=== PATIENT | female | born 1995 | race Caucasian/White ===

== ENCOUNTER 2017-11-03 13:32 | Emergency (ER) | payer MEDICAID ==
[~2017-11-03] VITALS: Ht 165.1 cm; Wt 88.0 kg
[~2017-11-03 13:32] MED LIST: DOXY25TA61 PO; LACT10CA PO; PYRI50TA25 PO; [UNRECOGNIZED DRUG - CODE] PO
[2017-11-03 13:34] VITALS: BP 132/82
--- NOTE | 2017-11-03 13:39 | NUR ---
PT WAS GIVEN URINE CUP...PT WAS UNABLE PROVIDE SAMPLE AT THIS TIME.
--- NOTE | 2017-11-03 15:00 | NUR ---
Patient ambulated to bed 6 with family. RN evaluating patient at bedside.
--- NOTE | 2017-11-03 15:51 | NUR ---
Dr. Hernandez evaluating patient at bedside.
--- NOTE | 2017-11-03 15:55 | NUR ---
PT C/O N/V SINCE YESTERDAY, WITH H/O HYPEREMESIS GRAVIDARIUM. PT IS 11 WEEKS AND WAS TOLD BY OBGYN IF SHE HAS N/V UNCONTROLLED TO COME TO ER. DENIES PAIN OR ABNORMAL VAG BLEEDING. PT IS AXO X4, RESTING IN BED RELAXED AND SPEAKING IN FULL SENTENCES. PLACED ON ALL MONIOTRSMD AT BEDSIDE TO PERFECTO
[2017-11-03] MEDS ORDERED: ONDANSETRON 4 MG/2 ML VIAL IVP ONE (16:10)
[2017-11-03] MEDS ORDERED: MULTIVITAMIN-12 10 ML, THIAMINE 100 MG, MAGNESIUM SULFATE 50% 2,000 MG, FOLIC ACID 5 MG... IV ONE ×5 (16:10)
[2017-11-03] MEDS ORDERED: NACL 0.9% 1,000 ML IV SCH (16:10)
[2017-11-03] MEDS ORDERED: METOCLOPRAMIDE 10 MG/2 ML INJ VIAL IVP ONE (16:10)
--- NOTE | 2017-11-03 16:37 | NUR ---
US AT BEDSIDE
[2017-11-03 17:21] LABS: BASOPHILS % (AUTO) 0.3 % (0.0-2.0); EOSINOPHILS % (AUTO) 0.4 % (0.0-4.0); HEMATOCRIT 33.6 % (36-48); HEMOGLOBIN 11.2 g/dL (12.0-16.0); LYMPHOCYTES # (AUTO) 1.7 K/uL (2.5-16.5); LYMPHOCYTES % (AUTO) 19.4 % (20.5-51.1); MEAN CORPUSCULAR HEMOGLOBIN 27 pg (27-31); MEAN CORPUSCULAR HGB CONC 33 g/dL (33-37); MEAN CORPUSCULAR VOLUME 80.7 fL (80-94); MONOCYTES # (AUTO) 0.5 K/uL (0.8-1.0); MONOCYTES % (AUTO) 5.3 % (1.7-9.3); NEUTROPHILS # (AUTO) 6.5 K/uL (1.8-7.7); NEUTROPHILS % (AUTO) 74.6 % (42.2-75.2); PLATELET COUNT (AUTO) 306 K/uL (140-450); RED BLOOD CELL COUNT(AUTO) 4.16 MIL/uL (4.20-5.40); RED CELL DISTRIBUTION WIDTH 14.5 % (11.6-13.7); WHITE BLOOD COUNT (AUTO) 8.7 K/uL (4.8-10.8)
[2017-11-03 17:32] LABS: ACETONE, SERUM NEGATIVE (NEGATIVE)
[2017-11-03 17:35] LABS: ANION GAP 12.7 (8-16); CARBON DIOXIDE 25.1 mmol/L (21-32); CHLORIDE 103 mmol/L (98-107); CREATININE 0.6 mg/dL (0.6-1.3); GFR ARICAN-AMERICAN 162 mL/min (>90); GLUCOSE 86 mg/dL (74-106); POTASSIUM 3.8 mmol/L (3.5-5.1); SODIUM SERUM 137 mmol/L (136-145); UREA NITROGEN, BLOOD 6 mg/dL (7-18)
[2017-11-03 17:41] LABS: AMYLASE 71 U/L (25-115); ASPARTATE AMINOTRANSFERASE 18 U/L (15-37); LIPASE 145 U/L (73-393); TOTAL BILIRUBIN 0.4 mg/dL (0.0-1.0)
--- NOTE | 2017-11-03 18:20 | NUR ---
Patient appears to be resting comfortably in bed. Vital Signs within normal limits. Respirations even and unlabored. PENDING US RESULTS
--- NOTE | 2017-11-03 18:33 | NUR ---
PT AMBULATES WITH STEADY GAIT TO BR FOR URINE SAMPLE
[2017-11-03 18:43] LABS: APPEARANCE,URINE SL CLOUDY (CLEAR); BILIRUBIN,URINE 2+ (NEGATIVE); BLOOD, URINE 3+ (NEGATIVE); COLOR,URINE YELLOW (YELLOW); LEUKOCYTE ESTERASE ,URINE 2+ (NEGATIVE); NITRITE, URINE NEGATIVE (NEGATIVE); UGLUCOSE NEGATIVE (NEGATIVE)
[2017-11-03 18:56] LABS: RBC,URINE 20-50 /HPF (0-5); WBC,URINE TOO MANY TO COUNT /HPF (0-5)
[2017-11-03 19:38] VITALS: BP 101/53
--- NOTE | 2017-11-03 19:38 | NUR ---
Patient discharged with v/s stable. Written and verbal after care instructions given and explained. Patient alert, oriented and verbalized understanding of instructions. Ambulatory with steady gait. All questions addressed prior to discharge. ID band removed. Patient advised to follow up with PMD. Rx of AND ZOFRAN given. Patient educated on indication of medication including possible reaction and side effects. Opportunity to ask questions provided and answered. Addendum: 11/03/17 at 1942 by GARY IV removed, catheter intact and site benign. Applied folded 4x4 gauze and tape to stop bleeding.
--- NOTE | 2017-11-10 20:54 | NUR ---
NS 1L END TIME AT 11/03/17 ([id number])
== END 2017-11-03 19:38 | disposition home or self-care (01) ==
LOC: MED 13:32
DX: O21.0 Mild hyperemesis gravidarum (principal); J45.909 Unspecified asthma, uncomplicated; Z3A.10 10 weeks gestation of pregnancy; Z79.899 Other long term (current) drug therapy
CPT/HCPCS: 36415; 76705; 76817; 80053; 81001; 82009; 82150; 83690; 84703; 85025; 86900; 86901; 87086; 96361; 96365; 96366; 96375; 99285; A9153; J2405; J2765; J3411; J3475; J3490; J7030; Q0092

== ENCOUNTER 2019-06-16 21:17 | Emergency (ER) | payer MEDICAID, OTHER ==
[~2019-06-16] VITALS: Ht 165.1 cm; Wt 81.6 kg
[2019-06-16 21:35] VITALS: BP 134/85
--- NOTE | 2019-06-16 21:38 | NUR ---
TO LOBBY A/W BED AMBULATORY
--- NOTE | 2019-06-16 22:07 | NUR ---
PT AMBULATED TO BED #2
--- NOTE | 2019-06-16 22:14 | NUR ---
24 Y/O FEMALE PRESENTS TO ED, C/O RIGHT ABDOMINAL PAIN THAT RADIATED TO LEFT FLANK. PT STATES PAIN STARTED 1 HR AGO, 8/10, NOW PAIN IS 7/10. PT STATES HAVING NAUSEA BUT NO VOMITING. PT C/O 1 EPISODE DIARRHEA. PT DENIES TAKING MEDICATIONS PRIOR COMING TO ED. PT VSS. ERMD AWARE. WILL CONTINUE TO MONITOR.
[2019-06-16] MEDS ORDERED: cefTRIAXone 1,000 MG VIAL ONE (22:24)
[2019-06-16] MEDS ORDERED: LIDOCAINE MPF 1% 5 ML ONE (22:24)
[2019-06-16] MEDS ORDERED: cefTRIAXone 1,000 MG in LIDOCAINE MPF 1% 2.1 ML IM ONE (22:25)
[2019-06-16 22:28] VITALS: BP 134/85
--- NOTE | 2019-06-16 22:28 | NUR ---
PT DISCHARGED BY DR FAJARDO. EDUCATED PT REGARDING MEDICATIONS AND D/C INSTRUCTIONS. PT VERBALIZED UNDERSTANDING OF TEACHING. TOLD PT TO FOLLOW UP WITH PCP AND WHEN TO RETURN TO ED. PT STABLE CONDITION. ALL QUESTIONS ANSWERED.
--- NOTE | 2019-06-16 22:32 | NUR ---
PT DISCHARGED BEFORE MED RE-EVALUATED. PT STATES SHE HAS HAD MEDICATION BEFORE.
== END 2019-06-16 22:28 | disposition home or self-care (01) ==
LOC: MED 21:17
DX: N39.0 Urinary tract infection, site not specified (principal); J45.909 Unspecified asthma, uncomplicated; F12.90 Cannabis use, unspecified, uncomplicated; Z79.899 Other long term (current) drug therapy
CPT/HCPCS: 81002; 96372; 99283; J0696; J2001

== ENCOUNTER 2021-10-24 07:57 | Inpatient (IN) | payer OTHER ==
[~2021-10-24] VITALS: Ht 165.1 cm; Wt 107.5 kg
[2021-10-24] MEDS: NACL 0.9% 1,000 ML IV SCH ×2 (00:15→16:08)
[2021-10-24 08:07] VITALS: BP 116/75
[2021-10-24] MEDS ORDERED: LACTATED RINGERS 1,000 ML IV ONE ×2 (08:10→13:00)
--- NOTE | 2021-10-24 08:47 | NUR ---
LAB AT BEDSIDE
[2021-10-24 09:00] LABS: BASOPHILS % (AUTO) 0.3 % (0.0-2.0); EOSINOPHILS # (AUTO) 0.1 K/uL (0-0.4); EOSINOPHILS % (AUTO) 0.6 % (0.0-4.0); HEMOGLOBIN 12.8 g/dL (12.0-16.0); LYMPHOCYTES # (AUTO) 1.2 K/uL (2.5-16.5); LYMPHOCYTES % (AUTO) 11.3 % (20.5-51.1); MEAN CORPUSCULAR HEMOGLOBIN 27 pg (27-31); MEAN CORPUSCULAR HGB CONC 34 g/dL (33-37); MONOCYTES # (AUTO) 0.5 K/uL (0.8-1.0); MONOCYTES % (AUTO) 4.5 % (1.7-9.3); NEUTROPHILS # (AUTO) 8.9 K/uL (1.8-7.7); NEUTROPHILS % (AUTO) 83.3 % (42.2-75.2); PLATELET COUNT (AUTO) 351 K/uL (140-450); RED BLOOD CELL COUNT(AUTO) 4.69 MIL/uL (4.20-5.40); RED CELL DISTRIBUTION WIDTH 14.2 % (11.6-13.7); WHITE BLOOD COUNT (AUTO) 10.7 K/uL (4.8-10.8)
[2021-10-24] MEDS ORDERED: diphenhydrAMINE 50 MG/ML VIAL IVP ONE (09:15)
[2021-10-24] MEDS ORDERED: METOCLOPRAMIDE 10 MG/2 ML INJ VIAL IVP ONE (09:15)
--- NOTE | 2021-10-24 09:18 | NUR ---
26Y FEMALE BIB SELF DUE TO CONSISTENT N/V X1 WEEK. PT ALSO HAS UTI/GALLSTONES. PT DX WITH HG BY OB. PER PATIENT SHE IS ONLY ABLE TO KEEP WATER DOWN, BUT NO FOOD. PT [id number]. PT A&OX4 AND AMBULATORY. DENIES ANY PAIN CURRENTLY, BUT STATED SHE WILL FEEL PAIN IN HER RUQ WHEN SHE IS VOMITTING. ABDOMEN IS SOFT AND NON-TENDER TO TO TOUCH PMH: GALLSTONES NKA
[2021-10-24 09:54] LABS: ALBUMIN 3.7 g/dL (3.4-5.0); ANION GAP 16.3 (8-16); CARBON DIOXIDE 24.9 mmol/L (21-32); CREATININE 0.7 mg/dL (0.6-1.3); POTASSIUM 3.2 mmol/L (3.5-5.1); TOTAL BILIRUBIN 0.4 mg/dL (0.0-1.0)
[2021-10-24] MEDS ORDERED: POTASSIUM CHLORIDE 10 MEQ TABER PO ONE (10:15)
[2021-10-24 11:23] LABS: APPEARANCE,URINE SL CLOUDY (CLEAR); BILIRUBIN,URINE 2+ (NEGATIVE); BLOOD, URINE 1+ (NEGATIVE); COLOR,URINE YELLOW (YELLOW); LEUKOCYTE ESTERASE ,URINE 2+ (NEGATIVE); NITRITE, URINE NEGATIVE (NEGATIVE); UGLUCOSE NEGATIVE (NEGATIVE)
[2021-10-24 12:11] LABS: RBC,URINE 0-5 /HPF (0-5); WBC,URINE 16-25 (MOD) /HPF (0-5)
--- NOTE | 2021-10-24 13:18 | NUR ---
GPT CURRENTLY EXPERICING NAUSEA BEDSIDE. PT PROVIDED WITH EMESIS BAG
[2021-10-24] MEDS ORDERED: METO-485 PO (13:22)
[2021-10-24] MEDS ORDERED: CEPH-588 PO (13:22)
[2021-10-24] MEDS ORDERED: KCL 20 MEQ/WATER INJ PREMIX 100 ML IV ONE (14:00)
--- NOTE | 2021-10-24 14:09 | NUR ---
AVERY HUBBARD HANDED TO LAB
[2021-10-24] MEDS ORDERED: cefTRIAXone 1,000 MG VIAL ONE (14:25)
--- NOTE | 2021-10-24 15:42 | NUR ---
Patient appears to be resting comfortably in bed. Vital Signs within normal limits. Respirations even and unlabored.
[2021-10-24] MEDS ORDERED: ACETAMINOPHEN 325 MG TAB PO PRN (15:45)
[2021-10-24] MEDS ORDERED: MORPHINE SULFATE 2 MG/ML SYR IVP PRN (15:45)
[2021-10-24 16:45] VITALS: BP 126/71
--- NOTE | 2021-10-24 16:45 | NUR ---
RECEIVED PT FROM ED VIA WHEELCHAIR, BEDSIDE REPORT GIVEN. PT AWAKE, ALERT, ORIENTED X4. ABLE TO AMBULATE. BREATHING SYMMETRICAL ON ROOM AIR. DENIES PAIN AT THIS TIME. NO NAUSEA/VOMITING NOTED AT THIS TIME. PT APPROXIMATELY AT 7WEEKS. PT IS , PT STATES SHE HAS NAUSEA/VOMITING THROUGHOUT HER WHENEVER . RFA 20G RUNNING NS AT 125CC/HR AND POTASSIUM IV AT 25CC/HR. PER PT LAST BM WAS MORE THAN 3 DAYS AGO, ASKED PT IF SHE WANTS MEDICATION TO HELP HER HAVE BM, REFUSED AT THIS TIME. CALL LIGHT WITHIN REACH. ENCOURAGED TO CALL FOR ASSISTANCE. ALL SAFETY MEASURES IN PLACE.
--- NOTE | 2021-10-24 17:31 | NUR ---
DR OCHOA MADE AWARE THAT PT IS NOT TOLERATING IV POTASSIUM, PT WAS GIVEN KDUR AT ER THIS MORNING FOR K LEVEL 3.2 MD STATED TO HOLD POTASSIUM FOR NOW AND RECHECK BMP TOMORROW. ORDER ACKNOWLEDGED AND CARRIED OUT. PT AWARE.
[2021-10-24] MEDS: ONDANSETRON 4 MG/2 ML VIAL IVP PRN (18:59)
--- NOTE | 2021-10-24 19:32 | NUR ---
RECEIVED BEDSIDE REPORT FROM DAY SHIFT NURSE FOR CONTINUITY OF CARE.
[2021-10-24 20:00] VITALS: BP 122/77
--- NOTE | 2021-10-24 20:29 | NUR ---
PT USES RESTROOM INDEPENDENTLY. COMPLAINTS OF A MILD NAUSEA, NO VOMITING. IV ON RFA INTACT & PATENT.
[2021-10-25] MEDS: ONDANSETRON 4 MG/2 ML VIAL IVP PRN ×3 (03:01→23:53)
--- NOTE | 2021-10-25 03:01 | NUR ---
PATIENT COMPLAINT OF NAUSEA AND VOMITING (X2), MEDICATION ADMINISTERED ORDERED.
[2021-10-25 06:31] LABS: BASOPHILS % (AUTO) 0.2 % (0.0-2.0); EOSINOPHILS # (AUTO) 0.1 K/uL (0-0.4); EOSINOPHILS % (AUTO) 1.6 % (0.0-4.0); HEMATOCRIT 31.7 % (36-48); HEMOGLOBIN 10.7 g/dL (12.0-16.0); LYMPHOCYTES # (AUTO) 1.9 K/uL (2.5-16.5); LYMPHOCYTES % (AUTO) 23.2 % (20.5-51.1); MEAN CORPUSCULAR HEMOGLOBIN 28 pg (27-31); MEAN CORPUSCULAR HGB CONC 34 g/dL (33-37); MEAN CORPUSCULAR VOLUME 81.5 fL (80-94); MONOCYTES # (AUTO) 0.6 K/uL (0.8-1.0); MONOCYTES % (AUTO) 7.1 % (1.7-9.3); NEUTROPHILS # (AUTO) 5.5 K/uL (1.8-7.7); NEUTROPHILS % (AUTO) 67.9 % (42.2-75.2); PLATELET COUNT (AUTO) 277 K/uL (140-450); RED BLOOD CELL COUNT(AUTO) 3.89 MIL/uL (4.20-5.40)
[2021-10-25 06:37] LABS: ALBUMIN 2.9 g/dL (3.4-5.0); ANION GAP 10.9 (8-16); CARBON DIOXIDE 24.5 mmol/L (21-32); CREATININE 0.5 mg/dL (0.6-1.3); MAGNESIUM 1.8 mg/dL (1.8-2.4); POTASSIUM 3.4 mmol/L (3.5-5.1); TOTAL BILIRUBIN 0.5 mg/dL (0.0-1.0)
--- NOTE | 2021-10-25 07:20 | NUR ---
RECEIVED REPORT FROM COMPANY PILOT NURSE. PT IS AOX4. ON ROOM AIR. IV SITE ON LEFT WRIST 24G, INFUSING AT 125ML/HR NS. PT IS 7 WEEKS . DISCUSSED PLAN OF CARE. WILL CONTINUE TO MONITOR.
[2021-10-25] MEDS: NACL 0.9% 1,000 ML IV SCH ×3 (07:45→23:45)
--- NOTE | 2021-10-25 09:21 | NUR ---
PATIENT HAS BEEN SCREENED AND CATEGORIZED HIGH NUTRITION RISK. PATIENT WILL BE SEEN WITHIN 1-2 DAYS OF ADMISSION. RECEIVED REFERRAL FOR NAUSEA AND VOMITING OVER THREE DAYS [address]
[2021-10-25] MEDS: PYRIDOXINE 50 MG TAB PO SCH ×3 (09:35→18:38)
--- NOTE | 2021-10-25 10:00 | NUR ---
LEFT WRIST IV SITE IS NOT WORKING. CHANGED IV SITE, PT NOW HAS LEFT HAND, 22G.
--- NOTE | 2021-10-25 13:08 | NUR ---
DC PLANNING: THE PATIENT PRESENTED WITH C/O N/V RELATED TO OF 7 WEEKS. UA DIP POSITIVE, PELVIC US CONFIRMED A LIVE INTRAUTERINE . PATIENT ADMITTED FOR MANAGEMENT OF HYPEREMESIS GRAVIDARUM. CM SPOKE WITH THE PATIENT AT BEDSIDE AND CONFIRMED HER ADDRESS AND PHONE NUMBER. SHE LIVES IN A [place] WITH HER MOTHER, BOYFRIEND AND 4 YEAR OLD CHILD. THE PATIENT HAS HAD ISSUES WITH HYPEREMESIS DURING HER TWO PRIOR PREGNANCIES. HER FIRST BORN 6 YEARS AGO AT THE AGE OF 6 MONTHS FROM CMV. THE PATIENT WAS WORKING A CLOTHING SENIOR COUNSEL BUT RESIGNED TODAY TO FOCUS ON HER AND HEALTH STATUS. HER BOYFRIEND DOES WOOD WORKING PROFESSIONALLY. THE PATIENT IS INDEPENDENT IN ALL ACTIVITIES AND HAS NO H/O HOME HEALTH, NO DME. SHE DOES NOT HAVE A PMD BUT SEES DR ELAINE TAPIA FOR OB MANAGEMENT, IN [place] AND HAS AN APPOINTMENT WITH HER THIS SUNDAY. THE PATIENT WAS ENCOURAGED TO GO THROUGH HER INSURANCE, [facility] TO IDENTIFY HER PMD AND MAKE AN APPOINTMENT TO GET ESTABLISHED WITH THEM. NO DC NEEDS IDENTIFIED, THE PATIENTS MOM OR BOYFRIEND WILL PROVIDE TRANSPORT HOME. CM WILL FOLLOW.
--- NOTE | 2021-10-25 14:42 | NUR ---
PT FEELING A LITTLE NAUSEATED. ZOFRAN GIVEN PER DR'S ORDER.
--- NOTE | 2021-10-25 15:34 | NUR ---
RELAYED TO DR. GARBER THAT PT K IS LOW, 3.4 ORDERED K-DUR 40MEQ PO.
[2021-10-25] MEDS ORDERED: MAGNESIUM OXIDE 400 MG TAB PO PRN (15:40)
[2021-10-25] MEDS ORDERED: MAG SULF 2000 MG/WATER PREMIX 50 ML IV PRN (15:40)
[2021-10-25] MEDS ORDERED: KCL 20 MEQ/WATER INJ PREMIX 200 ML IV PRN (15:40)
[2021-10-25] MEDS ORDERED: POTASSIUM CHLORIDE 10 MEQ TABER PO SCH (16:00)
--- NOTE | 2021-10-25 16:00 | NUR ---
GAVE PT K-DUR, PER DR'S ORDER. K IS LOW AT 3.4.
--- NOTE | 2021-10-25 19:15 | NUR ---
GAVE REPORT TO MEAT TRIMMER NURSE. DISCUSSED PLAN OF CARE. PT IS STABLE.
--- NOTE | 2021-10-25 23:53 | NUR ---
PATIENT COMPLAINTS OF NAUSEA, NAUSEA MEDICATION ADMINISTERED ORDER.
--- NOTE | 2021-10-26 | NUR ---
PATIENT VERBALIZED OF HAVING MINIMAL AND TOLERABLE NAUSEA. PATIENT EXPRESSED WANTS TO GO HOME.
[2021-10-26] MEDS ORDERED: POTASSIUM CHLORIDE 10 MEQ TABER PO PRN (06:00)
[2021-10-26] MEDS: PYRIDOXINE 50 MG TAB PO SCH ×3 (06:00→12:36)
--- NOTE | 2021-10-26 07:10 | NUR ---
RECEIVED REPORT FROM INSTANT POTATO PROCESSOR NURSE. PT IS AWAKE, AOX4. PT NOT IN DISTRESS AT THIS TIME. IV SITE ON R FA, 20G, RUNNING AT 125ML/HR NS. CALL NAQVI WITHIN PT'S REACH. ALL SAFETY MEASURES DONE. DISCUSSED PLAN OF CARE. WILL CONTINUE TO MONITOR.
--- NOTE | 2021-10-26 07:20 | NUR ---
PATIENT IS ON STABLE CONDITION, AWAKE, ALERT AND RESPONSIVE. ENDORSED TO DAY SHIFT NURSE FOR CONTINUITY OF PATIENT CARE.
[2021-10-26] MEDS: NACL 0.9% 1,000 ML IV SCH (07:45)
[2021-10-26] MEDS ORDERED: DOXY1TCP PO (09:03)
[2021-10-26] MEDS ORDERED: NITR100C7 PO (09:03)
--- NOTE | 2021-10-26 11:00 | NUR ---
SEEN PT LYING ON HER BED, AWAKE. PT DIDN'T COMPLAIN OF VOMITING. PT IS NOT IN DISTRESS. WILL CONTINUE TO MONITOR.
[2021-10-26 12:54] VITALS: BP 121/60
--- NOTE | 2021-10-26 13:15 | NUR ---
PT DISCHARGED TO HOME. PICKED UP BY SIGNIFICANT SOMEONE. STUDENT NURSE WHEELED PT OUT TO LOBBY. REMOVED ARM BAND, IV SITE REMOVED AND BLEEDING CONTROLLED. ALL PERSONAL BELONGINGS WERE IN POSSESSION. CHANGED TO OWN CLOTHES. DISCHARGE TEACHING DONE. PT V/S STABLE.
--- NOTE | 2021-10-26 14:00 | NUR ---
PT IS AWAKE, DENIES PAIN AT THIS TIME. Addendum: 10/26/21 at 2023 by Fabienne White RN DISREGARD MESSAGE.
== END 2021-10-26 13:15 | disposition home or self-care (01) | DRG 566 ==
LOC: MED 07:57 → MTU 14:45
PROVIDERS: ADMIT Hospitalist; ATTEND Hospitalist
DX: O21.0 Mild hyperemesis gravidarum (principal); O23.41 Unspecified infection of urinary tract in pregnancy, first trimester; E86.0 Dehydration; N39.0 Urinary tract infection, site not specified; O99.611 Diseases of the digestive system complicating pregnancy, first trimester; Z20.822 Contact with and (suspected) exposure to COVID-19; K80.20 Calculus of gallbladder without cholecystitis without obstruction; O26.891 Other specified pregnancy related conditions, first trimester; Z3A.01 Less than 8 weeks gestation of pregnancy
CPT/HCPCS: 36415; 76801; 80053; 81001; 83605; 83735; 84702; 85025; 86900; 86901; 87040; 87081; 87086; 96361; 96365; 96375; 99285; J0696; J1200; J2405; J2765; J3480; J7060; J7120; Q0092